=== PATIENT | female | born 1960 | race Caucasian/White ===

== ENCOUNTER 2020-12-14 15:37 | Emergency (ER) | payer OTHER ==
[~2020-12-14] VITALS: Ht 162.6 cm; Wt 63.0 kg
[2020-12-14 15:58] VITALS: BP 148/84
--- NOTE | 2020-12-14 16:27 | RAD ---
EXAM: Right wrist, 3 views. HISTORY: Pain. Blunt trauma. COMPARISON: None. FINDINGS: 3 views of the wrist are obtained. There is a mildly displaced distal radial metaphyseal fr acture. There is also a slightly comminuted ulnar styloid fracture. There is wrist soft tissue swelli ng. There is no foreign body. IMPRESSION: Mildly displaced distal radial metaphyseal fracture and ulnar styloid fracture. Electronically signed by: Claudine Murillo MD (12/14/2020 4:25 PM) [id number]
[2020-12-14] MEDS ORDERED: IBUPROFEN 800 MG TABLET. PO ONE (16:30)
--- NOTE | 2020-12-14 17:16 | PHYS DOC ---
Past History Past Surgical History: Other (CAT VALE) Alcohol Use: Occasionally (CAT VALE) General Adult EDM: Chief Complaint: WRIST PAIN HPI: HPI: Patient is a 60 year old female who presents with right upper extremity pain. Patient states that she was kicked in the wrist by a horse at approximately 1500 today. She rates her pain 4/10 constantly. She has not taken any medications to alleviate her pain, however states that pressure and ice packs do help. Patient denies any other trauma or pain. Patient has no other complaints at this time. (CAT VALE) Review of Systems: Review of Systems: ROS negative except as mentioned in HPI. (CAT VALE) Current Medications: Current Meds: Current Medications Medications (Trade) Dose Ordered Sig/Sari Start Time Stop Time Status Last Admin Dose Admin Ibuprofen (Motrin) 800 mg 1X ONCE 12/14/20 16:30 12/14/20 16:31 DC 12/14/20 16:30 800 MG (CAT VALE) Allergies: Allergies: Allergies Coded Allergies Type Severity Reaction Last Updated Verified Penicillins Allergy Unknown 12/14/20 Yes (CAT VALE) Physical Exam: PE: Constitutional: Well developed, well nourished, no acute distress, non-toxic appearance. Cardiovascular: Heart rate regular rhythm, no murmur. Lungs & Thorax: Bilateral breath sounds clear to auscultation. Skin: Warm, dry, no erythema, no rash. Extremities: Right upper extremity with swelling and ecchymosis proximal to the wrist. Extremities otherwise no tenderness, no cyanosis, no clubbing, ROM intact, no edema. Neurologic: Alert and oriented x3, normal motor function, normal sensory function, no focal deficits noted. (CAT VALE) Current Patient Data: Vital Signs: Vital Signs Date Time Temp Pulse Resp B/P (MAP) Pulse Ox O2 Delivery O2 Flow Rate FiO2 12/14/20 15:58 97.7 72 14 148/84 (105) 97 Room Air (CAT VALE) Radiology/Procedures: Radiology/Procedures: PROCEDURE: WRIST 3V RIGHT EXAM: Right wrist, 3 views. HISTORY: Pain. Blunt trauma. COMPARISON: None. FINDINGS: 3 views of the wrist are obtained. There is a mildly displaced distal radial metaphyseal fracture. There is also a slightly comminuted ulnar styloid fracture. There is wrist soft tissue swelling. There is no foreign body. IMPRESSION: Mildly displaced distal radial metaphyseal fracture and ulnar styloid fracture. Electronically signed by: Claudine Murillo MD (12/14/2020 4:25 PM) [id number] (CAT VALE) Heart Score: C/O Chest Pain: No (CAT VALE) Course & Med Decision Making: Course & Med Decision Making Pertinent Labs and Imaging studies reviewed. (See chart for details) X-rays were ordered and showed distal radial and ulnar fractures that are mildly displaced. Patient is instructed to follow-up with Ortho as soon as possible, as she may need surgical intervention for proper healing. Patient denies pain medication at this time, but is instructed to take 800 mg ibuprofen every 6 hours as needed for pain and inflammation. She also will be given RICE instructions. Patient understands and is agreeable to discharge plan. (ACT VALE) Dragon Disclaimer: Dragon Disclaimer: This electronic medical record was generated, in whole or in part, using a voice recognition dictation system. (CAT VALE) Splinting Patient informed of findings. Sugar tong splint applied by sarah Monsalve. The splint is checked by myself, with appropriate stabilization of the injury. Distal capillary refill less than 2 seconds and distal neurologic function intact. (CAT VALE) Attending Co-Sign The patient was seen and interviewed as well as examined at the bedside. The chart was reviewed. The case was discussed. Agree with the plan of care. (NAILA BOBO DO) Departure Departure: Impression: Primary Impression: Fracture of radius, distal, with ulna, right, closed Qualified Codes: S52.501A - Unspecified fracture of the lower end of right radius, initial encounter for closed fracture; S52.601A - Unspecified fracture of lower end of right ulna, initial encounter for closed fracture Disposition: 01 HOME / SELF CARE / HOMELESS Condition: STABLE Referrals: PCP,NO (PCP) Patient Instructions: Cast or Splint Care, [id number], RICE - Routine Care for Injuries, [id number], Wrist Fracture, [id number] Additional Instructions: [facility] [address] [place] [address] Your x-rays today revealed that you have multiple fractures to your distal radius as well as a fracture of her ulna. You should follow-up with orthopedic surgery as soon as possible to schedule further evaluation and management, as you may require surgery for the fracture to heal properly. Return to the emergency department if your pain worsens or you develop signs of compartment syndrome (pale/cool skin, loss of pulses, numbness and tingling. CAT VALE Dec 14, 2020 17:16 NAILA BOBO DO Dec 16, 2020 06:13
== END 2020-12-14 17:45 | disposition home or self-care (01) ==
LOC: ER 15:37
DX: S52.501A Unspecified fracture of the lower end of right radius, initial encounter for closed fracture (principal); S52.601A Unspecified fracture of lower end of right ulna, initial encounter for closed fracture; Z88.0 Allergy status to penicillin; W55.12XA Struck by horse, initial encounter; Y93.89 Activity, other specified; Y92.89 Other specified places as the place of occurrence of the external cause; Y99.8 Other external cause status
CPT/HCPCS: 29125; 73110; 99283